=== PATIENT | female | born 1985 | race Caucasian/White ===

== ENCOUNTER → 2016-06-03 | Outpatient (REF) | payer OTHER, MEDICAID ==
[2016-06-03 16:25] LABS: BASO % 0.8 % (0.0-1.0); EOS # 0.5 K/mm3 (0.0-0.50); EOS % 9.3 % (0.0-3.0); LARGE UNSTAINED CELL # 0.1 K/mm3 (0.0-0.4); LARGE UNSTAINED CELL % 1.5 % (0.0-4.0); LYMPH # 1.4 K/mm3 (1.5-4.5); LYMPH % 25.5 % (24.0-44.0); MEAN CORPUSCULAR HEMOGLOBIN 29.1 pg (27.0-33.0); MEAN CORPUSCULAR HGB CONC 33.5 g/dl (32.0-36.5); MEAN CORPUSCULAR VOLUME 86.8 fl (80.0-96.0); MONO # 0.3 K/mm3 (0.0-0.8); MONO % 5.8 % (0.0-5.0); NEUTROPHILS % 57.1 % (36.0-66.0); PLATELET COUNT, AUTOMATED 259 k/mm3 (150-450); RED CELL DISTRIBUTION WIDTH 12.3 % (11.5-14.5); WHITE BLOOD COUNT 5.2 K/mm3 (4.0-10.0)
[2016-06-03 16:45] LABS: ALBUMIN 3.9 GM/DL (3.2-5.2); ALBUMIN/GLOBULIN RATIO 1.22 (1.00-1.93); ALKALINE PHOSPHATASE 109 U/L (45-117); ALT/SGPT 63 U/L (12-78); ANION GAP 8 MEQ/L (8-16); AST/SGOT 29 U/L (15-37); BILIRUBIN,TOTAL 1.3 MG/DL (0.2-1.0); BLOOD UREA NITROGEN 9 MG/DL (7-18); CALCIUM LEVEL 9.1 MG/DL (8.5-10.1); CARBON DIOXIDE LEVEL 29 MEQ/L (21-32); CHLORIDE LEVEL 105 MEQ/L (98-107); CHOLESTEROL LEVEL 183 MG/DL (<200); FREE T4 1.04 NG/DL (0.76-1.46); GLOMERULAR FILTRATION RATE > 60.0 (>60); GLUCOSE, FASTING 96 MG/DL (70-105); POTASSIUM SERUM 4.4 MEQ/L (3.5-5.1); SODIUM LEVEL 142 MEQ/L (136-145); TOTAL PROTEIN 7.1 GM/DL (6.4-8.2); TRIGLYCERIDES LEVEL 122 MG/DL (<150)
== END ==
LOC: M SFHCPLAZ 13:28
PROVIDERS: ATTEND Physician Assistant Medical
DX: E66.01 Morbid (severe) obesity due to excess calories (principal); I10 Essential (primary) hypertension

== ENCOUNTER 2016-08-13 14:37 | Emergency (ER) | payer MEDICAID, OTHER ==
[~2016-08-13] VITALS: Ht 157.5 cm; Wt 117.0 kg
[2016-08-13] MEDS ORDERED: ALBU17IN (14:58)
[2016-08-13] MEDS ORDERED: LISI10TA4 PO (14:58)
[2016-08-13] MEDS ORDERED: VITA1CAP40 PO (14:58)
[2016-08-13] MEDS ORDERED: ATEN25TA PO (14:58)
[2016-08-13] MEDS ORDERED: STRI1AER2 (14:58)
[2016-08-13] MEDS ORDERED: diphenhydrAMINE INJ 50MG/ML VIAL (J1200) IV STA (15:37)
[2016-08-13] MEDS ORDERED: METOCLOPRAMIDE INJ 10MG/2ML VIAL (J2765) IV ONE (15:45)
[2016-08-13 16:18] LABS: MEAN CORPUSCULAR HEMOGLOBIN 30.4 pg (27.0-33.0); MEAN CORPUSCULAR HGB CONC 34.7 g/dl (32.0-36.5); MEAN CORPUSCULAR VOLUME 87.4 fl (80.0-96.0); RED CELL DISTRIBUTION WIDTH 12.3 % (11.5-14.5); WHITE BLOOD COUNT 8.2 K/mm3 (4.0-10.0)
[2016-08-13 16:39] LABS: CONTROL LINE HCG INT CTR LINE PRESENT
[2016-08-13 16:40] LABS: ANION GAP 5 MEQ/L (8-16); BLOOD UREA NITROGEN 8 MG/DL (7-18); CALCIUM LEVEL 9.1 MG/DL (8.5-10.1); CARBON DIOXIDE LEVEL 30 MEQ/L (21-32); CHLORIDE LEVEL 106 MEQ/L (98-107); CREATININE FOR GFR 0.83 MG/DL (0.55-1.02); GLOMERULAR FILTRATION RATE > 60.0 (>60); GLUCOSE, FASTING 98 MG/DL (70-105); POTASSIUM SERUM 4.7 MEQ/L (3.5-5.1); SODIUM LEVEL 141 MEQ/L (136-145)
--- NOTE | 2016-08-13 17:27 | REP ---
CT BRAIN WITHOUT CONTRAST: 08/13/2016. Comparison: 10/12/2015. Clinical history: Vision changes. Findings: Soft tissue and bone windows are reviewed for each slice level. Ventricles are midline, symmetric and without dilatation or displacement. Basal ganglia are symmetric and normal. The mcdaniel-white junction differentiation is well maintained. The cortical stripe preserved. There is no atrophy, vascular territory infarct, hemorrhage, mass or mass effect. Brainstem unremarkable. Cerebellum is without focal lesion. There is no posterior fossa hemorrhage or mass. Basal cisterns intact. Mastoids and visualized sinuses preserved. The skull base and calvarium show no fracture or focal lesion. Impression: 1. Normal noncontrast CT brain. No atrophy, ventriculomegaly, signs of increased intracranial pressure, hemorrhage or mass. 2. Sinuses, mastoids, skull base and calvarium all intact. Signed by Yon Wang MD 08/13/2016 08:24 P
[2016-08-13] MEDS ORDERED: REGL10TA6 PO (17:45)
[2016-08-13 17:54] VITALS: BP 122/75
== END 2016-08-13 17:56 | disposition home or self-care (01) ==
LOC: M ED 16:24
DX: G43.909 Migraine, unspecified, not intractable, without status migrainosus (principal); I10 Essential (primary) hypertension; J45.909 Unspecified asthma, uncomplicated; Z79.899 Other long term (current) drug therapy

== ENCOUNTER 2017-07-27 10:40 | Inpatient (IN) | payer MEDICAID, OTHER ==
[2017-07-27] MEDS: LORazepam 1 MG TAB PO (12:05)
[2017-07-27 12:06] LABS: HEMATOCRIT 45.4 % (36.0-47.0); HEMOGLOBIN 15.4 g/dl (12.0-15.5); MEAN CORPUSCULAR HEMOGLOBIN 28.4 pg (27.0-33.0); MEAN CORPUSCULAR HGB CONC 33.9 g/dl (32.0-36.5); MEAN CORPUSCULAR VOLUME 83.6 fl (80.0-96.0); PLATELET COUNT, AUTOMATED 276 10^3/uL (150-450); RED BLOOD COUNT 5.43 10^6/uL (4.00-5.40); RED CELL DISTRIBUTION WIDTH 11.9 % (11.5-14.5); WHITE BLOOD COUNT 8.7 10^3/uL (4.0-10.0)
[2017-07-27 12:24] LABS: CONTROL LINE HCG INT CTR LINE PRESENT; HCG, SERUM QUALITATIVE NEGATIVE (NEGATIVE)
[2017-07-27 12:29] LABS: AMPHETAMINES LEVEL URINE NEGATIVE (NEGATIVE); BARBITURATES URINE NEGATIVE (NEGATIVE); BENZODIAZEPINES URINE NEGATIVE (NEGATIVE); CANNABINOIDS URINE NEGATIVE (NEGATIVE); COCAINE METABOLITE URINE NEGATIVE (NEGATIVE); METHADONE URINE NEGATIVE (NEGATIVE); OPIATES URINE NEGATIVE (NEGATIVE); PHENCYCLIDINE URINE NEGATIVE (NEGATIVE)
[2017-07-27 12:39] LABS: ACETAMINOPHEN LEVEL < 2.0 UG/ML (10.0-30.0); ALBUMIN 3.4 GM/DL (3.2-5.2); ALBUMIN/GLOBULIN RATIO 0.97 (1.00-1.93); ALKALINE PHOSPHATASE 83 U/L (45-117); ALT/SGPT 30 U/L (12-78); ANION GAP 8 MEQ/L (8-16); AST/SGOT 15 U/L (7-37); BILIRUBIN,DIRECT 0.2 MG/DL (0.0-0.2); BILIRUBIN,TOTAL 0.5 MG/DL (0.2-1.0); BLOOD UREA NITROGEN 6 MG/DL (7-18); CALCIUM LEVEL 8.3 MG/DL (8.5-10.1); CARBON DIOXIDE LEVEL 26 MEQ/L (21-32); CHLORIDE LEVEL 107 MEQ/L (98-107); ETHYL ALCOHOL (ETHANOL) < 0.003 % (0.000-0.010); GLOMERULAR FILTRATION RATE > 60.0 (>60); GLUCOSE, FASTING 94 MG/DL (70-100); POTASSIUM SERUM 3.6 MEQ/L (3.5-5.1); SALICYLATE LEVEL < 1.7 MG/DL (5.0-30.0); SODIUM LEVEL 141 MEQ/L (136-145); TOTAL PROTEIN 6.9 GM/DL (6.4-8.2)
[2017-07-27] MEDS: CHLORTHALIDONE 25 MG TAB PO (14:00)
[2017-07-27] MEDS ORDERED: MAALOX 30 ML SUSP *UDC PO (14:30)
[2017-07-27] MEDS ORDERED: MOM 30ML SUSPENSION UDC PO (14:30)
[2017-07-27] MEDS ORDERED: ACETAMINOPHEN TAB 650MG DOSE (2X325MG) PO (14:30)
[2017-07-27] MEDS: cloNIDine 0.2 MG TAB PO (15:55)
[2017-07-27] MEDS: LISINOPRIL 5 MG TAB PO (15:59)
[2017-07-27] MEDS: **hydrALAZINE HCL** 25 MG TAB PO ×2 (18:00→23:32)
[2017-07-27] MEDS: cloNIDine 0.1 MG TAB PO ×2 (18:00→23:52)
[2017-07-27] MEDS ORDERED: LISINOPRIL 5 MG TAB PO (21:00)
[2017-07-27] MEDS: amLODIPine 5 MG TAB PO (21:55)
[2017-07-27] MEDS: ALBUTEROL 90 MCG/ACT 8GM HFA INHALER INH (22:27)
[2017-07-28] MEDS: **hydrALAZINE HCL** 25 MG TAB PO (05:57)
[2017-07-28] MEDS: cloNIDine 0.1 MG TAB PO ×4 (05:57→18:15)
[2017-07-28 07:22] LABS: ALBUMIN 3.4 GM/DL (3.2-5.2); ALBUMIN/GLOBULIN RATIO 0.89 (1.00-1.93); ALKALINE PHOSPHATASE 80 U/L (45-117); ALT/SGPT 30 U/L (12-78); ANION GAP 3 MEQ/L (8-16); AST/SGOT 13 U/L (7-37); BILIRUBIN,TOTAL 0.7 MG/DL (0.2-1.0); BLOOD UREA NITROGEN 8 MG/DL (7-18); CALCIUM LEVEL 8.9 MG/DL (8.5-10.1); CARBON DIOXIDE LEVEL 33 MEQ/L (21-32); CHLORIDE LEVEL 103 MEQ/L (98-107); CHOLESTEROL LEVEL 211 MG/DL (<200); CHOLESTEROL RISK RATIO 4.057 (<5); CREATININE FOR GFR 0.82 MG/DL (0.55-1.30); GLOMERULAR FILTRATION RATE > 60.0 (>60); GLUCOSE, FASTING 94 MG/DL (70-100); HDL CHOLESTEROL 52 MG/DL (>40); LDL CHOLESTEROL 129.8 MG/DL (<100); NON-HDL-C 159 MG/DL; POTASSIUM SERUM 3.3 MEQ/L (3.5-5.1); SODIUM LEVEL 139 MEQ/L (136-145); TOTAL PROTEIN 7.2 GM/DL (6.4-8.2); TRIGLYCERIDES LEVEL 146 MG/DL (<150)
[2017-07-28] MEDS ORDERED: ENTER DRUG NAME HERE (PATIENT'S OWN MED) PO (09:00)
[2017-07-28] MEDS: amLODIPine 5 MG TAB PO ×2 (09:11→21:40)
[2017-07-28] MEDS: hydrOXYzine 50 MG TAB PO (10:41)
[2017-07-28 12:15] LABS: TOTAL 25(OH) VITAMIN D 16.3 NG/ML (30.0-100.0)
[2017-07-28] MEDS: busPIRone 5 MG TAB PO ×2 (12:26→21:40)
[2017-07-28] MEDS: ESCITALOPRAM OXALATE 10 MG TAB (LEXAPRO) PO (12:26)
[2017-07-28] MEDS: POTASSIUM CHLORIDE 10 MEQ SR TABLET PO (13:51)
[2017-07-28] MEDS: VITAMIN D 50,000 UNITS CAPSULE (ERGOCALCIFEROL 1.25MG) PO (13:51)
[2017-07-28] MEDS: traZODone 50 MG TAB PO (21:39)
[2017-07-29] MEDS: cloNIDine 0.1 MG TAB PO ×4 (06:00→17:30)
[2017-07-29 07:19] LABS: ANION GAP 4 MEQ/L (8-16); BLOOD UREA NITROGEN 15 MG/DL (7-18); CALCIUM LEVEL 9.2 MG/DL (8.5-10.1); CARBON DIOXIDE LEVEL 34 MEQ/L (21-32); CHLORIDE LEVEL 105 MEQ/L (98-107); CREATININE FOR GFR 0.83 MG/DL (0.55-1.30); GLOMERULAR FILTRATION RATE > 60.0 (>60); GLUCOSE, FASTING 89 MG/DL (70-100); POTASSIUM SERUM 4.1 MEQ/L (3.5-5.1); SODIUM LEVEL 143 MEQ/L (136-145)
[2017-07-29] MEDS: ESCITALOPRAM OXALATE 10 MG TAB (LEXAPRO) PO (08:18)
[2017-07-29] MEDS: busPIRone 5 MG TAB PO ×2 (08:18→20:30)
[2017-07-29] MEDS: amLODIPine 5 MG TAB PO ×2 (08:18→20:30)
[2017-07-29] MEDS: PROPRANOLOL 10 MG TAB PO ×2 (15:45→20:30)
[2017-07-29] MEDS: hydrOXYzine 50 MG TAB PO (20:30)
[2017-07-30] MEDS: ALBUTEROL 90 MCG/ACT 8GM HFA INHALER INH (06:00)
[2017-07-30] MEDS: cloNIDine 0.1 MG TAB PO ×4 (06:22→17:30)
[2017-07-30] MEDS: PROPRANOLOL 10 MG TAB PO ×3 (08:20→21:04)
[2017-07-30] MEDS: ESCITALOPRAM OXALATE 10 MG TAB (LEXAPRO) PO (08:21)
[2017-07-30] MEDS: busPIRone 5 MG TAB PO ×2 (08:21→21:04)
[2017-07-30] MEDS: amLODIPine 5 MG TAB PO ×2 (08:21→21:05)
[2017-07-31] MEDS: cloNIDine 0.1 MG TAB PO ×3 (00:06→11:44)
[2017-07-31] MEDS: busPIRone 5 MG TAB PO (08:13)
[2017-07-31] MEDS: PROPRANOLOL 10 MG TAB PO (08:13)
[2017-07-31] MEDS: amLODIPine 5 MG TAB PO (08:14)
[2017-07-31] MEDS: ESCITALOPRAM OXALATE 10 MG TAB (LEXAPRO) PO (08:14)
[2017-08-01 00:08] LABS: ALDOS/RENIN RATIO 1.7 (0.0-30.0); ALDOSTERONE 3.5 ng/dL (0.0-30.0); RENIN ACTIVITY 2.046 ng/mL/hr (0.167-5.380)
== END 2017-07-31 13:15 | disposition home or self-care (01) | DRG 882 ==
LOC: M ED 10:40 → M ED INP 14:29 → M PSY 16:38
DX: F40.10 Social phobia, unspecified (principal); F33.2 Major depressive disorder, recurrent severe without psychotic features; Z68.41 Body mass index [BMI] 40.0-44.9, adult; F43.21 Adjustment disorder with depressed mood; I10 Essential (primary) hypertension; E78.5 Hyperlipidemia, unspecified; E66.9 Obesity, unspecified; J45.909 Unspecified asthma, uncomplicated; G43.909 Migraine, unspecified, not intractable, without status migrainosus; E28.2 Polycystic ovarian syndrome; G47.00 Insomnia, unspecified; E55.9 Vitamin D deficiency, unspecified; Z79.899 Other long term (current) drug therapy; Z88.2 Allergy status to sulfonamides; Z88.8 Allergy status to other drugs, medicaments and biological substances

== ENCOUNTER → 2017-09-24 | Outpatient (CLI) | payer MEDICAID, OTHER | LOC: M ADAMS 08:38 | DX: M79.671 Pain in right foot (principal); M77.31 Calcaneal spur, right foot | CPT/HCPCS: 73630 ==

== ENCOUNTER → 2022-08-27 | Outpatient (REF) | payer OTHER ==
[~2022-08-27] MED LIST: ACET500T15 PO; ALBU17IN; AMLO1TAB24 PO; ATEN25TA PO; BUSP5TA PO; ESCI10TA16 PO; HYDR1TAB33 PO; IBUP1TAB6 PO; LISI10TA22 PO; LORA-243 PO; PROP10TA55 PO; REGL10TA6 PO; RIZA10TA58 PO; STRI1AER2; TRAZ1TAB10 PO; VENTAER INH; VERA80TA3 PO; VITA50005 PO; XULA1DIS TOP
[2022-08-27 14:57] LABS: BASO % 0.8 % (0.0-1.0); EOS # 0.2 10^3/uL (0.0-0.5); EOS % 4.2 % (0.0-3.0); HEMATOCRIT 44.1 % (36.0-47.0); HEMOGLOBIN 14.7 g/dl (12.0-15.5); LYMPH # 1.5 10^3/uL (1.5-5.0); LYMPH % 30.8 % (24.0-44.0); MEAN CORPUSCULAR HEMOGLOBIN 29.1 pg (27.0-33.0); MEAN CORPUSCULAR HGB CONC 33.3 g/dl (32.0-36.5); MEAN CORPUSCULAR VOLUME 87.2 fl (80.0-96.0); MONO # 0.4 10^3/uL (0.0-0.8); MONO % 8.1 % (2.0-8.0); NEUTROPHILS # 2.6 10^3/uL (1.5-8.5); NEUTROPHILS % 55.3 % (36.0-66.0); PLATELET COUNT, AUTOMATED 259 10^3/uL (150-450); RED BLOOD COUNT 5.06 10^6/uL (4.00-5.40); WHITE BLOOD COUNT 4.7 10^3/uL (4.0-10.0)
[2022-08-27 15:23] LABS: HCG, SERUM QUALITATIVE NEGATIVE (NEGATIVE)
[2022-08-27 15:24] LABS: THYROID STIMULATING HORMONE 2.797 uIU/ML (0.55-4.78)
[2022-08-27 15:28] LABS: ALBUMIN 3.6 G/DL (3.2-5.2); ALKALINE PHOSPHATASE 85 U/L (46-116); ALT/SGPT 27 U/L (7.0-40); AST/SGOT 36 U/L (<34); BILIRUBIN,TOTAL 1.1 MG/DL (0.3-1.2); BLOOD UREA NITROGEN 10 MG/DL (9-23); CALCIUM LEVEL 8.4 MG/DL (8.5-10.1); CARBON DIOXIDE LEVEL 26 MMOL/L (20-31); CHLORIDE LEVEL 107 MMOL/L (98-107); CHOLESTEROL LEVEL 179 MG/DL (<200); CREATININE FOR GFR 0.66 MG/DL (0.55-1.30); GLOMERULAR FILTRATION RATE > 60.0 (>60); GLUCOSE, FASTING 101 MG/DL (60-100); HDL CHOLESTEROL 47.1 MG/DL (>40); LDL CHOLESTEROL 113.7 MG/DL (<100); NON-HDL-C 131.9 MG/DL; POTASSIUM SERUM 4.1 MMOL/L (3.5-5.1); SODIUM LEVEL 142 MMOL/L (136-145); TOTAL PROTEIN 6.1 G/DL (5.7-8.2); TRIGLYCERIDES LEVEL 91 MG/DL (<150)
== END ==
LOC: M SFHCADAM 07:02
PROVIDERS: ATTEND Family Medicine
DX: N92.1 Excessive and frequent menstruation with irregular cycle (principal); I10 Essential (primary) hypertension